=== PATIENT | female | born 1935 | race Caucasian/White ===

== ENCOUNTER 2016-05-20 14:24 | Outpatient (CLI) | payer MEDICARE, BC | END 2016-05-20 14:25 | disposition home or self-care (01) | DX: R92.8 Other abnormal and inconclusive findings on diagnostic imaging of breast (principal); C50.911 Malignant neoplasm of unspecified site of right female breast ==

== ENCOUNTER 2016-10-19 17:27 | Outpatient (CLI) | payer MEDICARE, BC ==
--- NOTE | 2016-10-20 10:25 | XRAY Report ---
EXAM: BILATERAL WRIST RADIOGRAPHY EXAM DATE: 10/19/2016 06:00 PM. CLINICAL HISTORY: Chronic bilateral wrist pain. COMPARISON: 07/31/2015. TECHNIQUE: 3 views. FINDINGS: Bones: Mild bilateral osteopenia, stable. Joints: Moderate right-sided and severe left-sided degenerative joint disease of the first carpometac arpal joints. On the left, there are osteophytes and some adjacent pericapsular calcifications versus heterotopic bone formation. This is stable since the prior left wrist exam. Mild bilateral scaphotrapezial degenerative joint disease. Carpal joints otherwise well-preserved. Soft Tissues: Normal. No soft tissue swelling. IMPRESSION: 1. 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 The left side i s stable since prior. JENNY Referring Provider Line: [phone] SITE ID: [id number]
== END 2016-10-19 17:28 | disposition home or self-care (01) ==
LOC: DI 17:27
PROVIDERS: ATTEND Orthopaedic Surgery
DX: M18.0 Bilateral primary osteoarthritis of first carpometacarpal joints (principal)

== ENCOUNTER 2016-10-31 12:47 | Outpatient (CLI) | payer MEDICARE, BC | END 2016-10-31 12:48 | disposition home or self-care (01) | LOC: DI 12:47 | PROVIDERS: ATTEND Family Medicine | DX: I50.9 Heart failure, unspecified (principal); I48.91 Unspecified atrial fibrillation; Z86.79 Personal history of other diseases of the circulatory system | CPT/HCPCS: 93306 ==

== ENCOUNTER 2016-12-15 15:52 | Outpatient (CLI) | payer MEDICARE, BC | END 2016-12-15 23:59 | disposition home or self-care (01) | LOC: RT 15:52 | PROVIDERS: ATTEND Orthopaedic Surgery | DX: Z01.810 Encounter for preprocedural cardiovascular examination (principal); I10 Essential (primary) hypertension; G56.02 Carpal tunnel syndrome, left upper limb | CPT/HCPCS: 93005 ==

== ENCOUNTER 2016-12-27 06:13 | Day surgery (SDC) | payer MEDICARE, BC ==
[2016-12-27] MEDS ORDERED: LACTATED RINGERS 1,000 ML IV ONE (06:59)
[2016-12-27] MEDS ORDERED: LIDOCAINE 1% 50 ML MDV SUBQ ONE (07:44)
[2016-12-27] MEDS ORDERED: PROPOFOL 200 MG/20 ML VIAL IVP ONE (07:45)
[2016-12-27] MEDS ORDERED: LIDOCAINE-MPF 2% 5 ML VIAL IM ONE (07:45)
[2016-12-27] MEDS ORDERED: BUPIVACAINE 0.25%-EPI 1:200000 PF 30 ML VIAL SUBQ ONE (07:45)
[2016-12-27] MEDS ORDERED: MIDAZOLAM 2 MG/2 ML VIAL IVP ONE (07:45)
[2016-12-27] MEDS ORDERED: fentaNYL 100 MCG/2 ML VIAL IVP ONE (07:45)
[2016-12-27 08:33] VITALS: BP 120/55
--- NOTE | 2016-12-27 09:08 | OPERATIVE REPORT ---
DATE OF SURGERY: 12/27/2016 00:00:00 PREOPERATIVE DIAGNOSIS: Left hand carpal tunnel syndrome and middle finger triggering. POSTOPERATIVE DIAGNOSIS: Left hand carpal tunnel syndrome and middle finger triggering. NAME OF PROCEDURE: Left hand carpal tunnel release and release of middle finger trigger finger. SURGEON: Mino Bernal MD ANESTHESIA: Local MAC. INDICATIONS FOR SURGERY: This is an 81-year-old female with chronic carpal tunnel syndrome who also h as concurrent triggering of her middle finger. She has failed nonoperative care and bracing. She ely res surgical carpal tunnel release and release of her trigger finger. DESCRIPTION OF OPERATIVE PROCEDURE: The patient was taken to the operating room, was given a MAC anes thetic and local infiltration after an adequate timeout. The hand was sterilely prepped and draped in standard fashion. The incision was first placed in the palm in line with the third webspace and take n down through skin and subcutaneous tissue down to the transverse carpal ligament, which was divided in line with the incision. The release ended at the superficial arch distally, and on the proximal e nd was extended to the distal wrist flexion crease. There was no other abnormality in the tunnel and the nerve did appear constricted. Attention was then directed to the middle finger where a small curv ed incision was made at the level of the A1 darryn and dissection directly made to the flexor sheath exposing the darryn and dividing it longitudinally. The patient was able to move her finger without t riggering at that point. The area was irrigated, both wounds, and closed with interrupted 4-0 nylon s uture. Sterile dressings were applied. The patient was taken to recovery room in stable condition. ESTIMATED BLOOD LOSS: Minimal. COMPLICATIONS: None. SPONGE AND NEEDLE COUNTS: Correct. JOB #: [id number] EXT JOB #:[id number]
== END 2016-12-27 06:14 | disposition home or self-care (01) ==
LOC: SDS 06:13
PROVIDERS: ATTEND Orthopaedic Surgery
PROC: 01N50ZZ Release Median Nerve, Open Approach (ICD-10-PCS; principal; 2016-12-27 07:30)
PROC: 0LN80ZZ Release Left Hand Tendon, Open Approach (ICD-10-PCS; 2016-12-27 07:30)
DX: G56.02 Carpal tunnel syndrome, left upper limb (principal); M65.332 Trigger finger, left middle finger; F17.200 Nicotine dependence, unspecified, uncomplicated; J43.9 Emphysema, unspecified; I11.0 Hypertensive heart disease with heart failure; I50.9 Heart failure, unspecified; K22.70 Barrett's esophagus without dysplasia; F32.9 Major depressive disorder, single episode, unspecified; Z86.73 Personal history of transient ischemic attack (TIA), and cerebral infarction without residual deficits
CPT/HCPCS: 26055; 64721; 93005; J7120

== ENCOUNTER 2017-01-12 12:00 | Outpatient (CLI) | payer MEDICARE, BC ==
[2017-01-12 19:03] LABS: BASOPHILS # (AUTO) 0.1 10^3/uL (0.0-0.1); BASOPHILS % (AUTO) 1.2 %; EOSINOPHILS # (AUTO) 0.4 10^3/uL (0.0-0.7); EOSINOPHILS % (AUTO) 4.6 %; HCT - HEMATOCRIT 41.4 % (37.0-47.0); HGB - HEMOGLOBIN 13.6 g/dL (12.0-16.0); LYMPHOCYTES # (AUTO) 1.1 10^3/uL (1.5-3.5); MEAN CORPUSCULAR HEMOGLOBIN 30.9 pg (27.0-31.0); MEAN CORPUSCULAR HGB CONC 32.8 g/dL (32.0-36.0); MEAN CORPUSCULAR VOLUME 94.2 fL (81.0-99.0); MEAN PLATELET VOLUME 9.2 fL (7.9-10.8); MONOCYTES # (AUTO) 1.1 10^3/uL (0.0-1.0); MONOCYTES % (AUTO) 12.9 %; NEUTROPHILS # (AUTO) 5.8 10^3/uL (1.5-6.6); NEUTROPHILS % (AUTO) 68.3 %; UNCORRECTED WHITE BLOOD COUNT 8.5 x10^3/uL; WHITE BLOOD COUNT 8.5 x10^3/uL (4.8-10.8)
[2017-01-12 19:27] LABS: ALBUMIN/GLOBULIN RATIO 1.2 (1.0-2.2); BILIRUBIN,TOTAL 0.7 mg/dL (0.2-1.0); BUN - BLOOD UREA NITROGEN 16 mg/dL (6-20); CALCIUM 9.6 mg/dL (8.5-10.3); CARBON DIOXIDE - CO2 26 mmol/L (21-32); CHLORIDE 103 mmol/L (101-111); CHOL/HDL RATIO 5.3 (<4.4); CHOLESTEROL 210 mg/dL; CREATININE 1.1 mg/dL (0.4-1.0); GFR - MDRD 48 (>89); GLUCOSE 109 mg/dL (70-100); HDL CHOLESTEROL 40 mg/dL; LDL/HDL RATIO 3.2 (<4.4); POTASSIUM 4.1 mmol/L (3.5-5.0); SODIUM 138 mmol/L (135-145); TOTAL PROTEIN 7.2 g/dL (6.7-8.2); TRIGLYCERIDES 215 mg/dL; VLDL CHOLESTEROL 43 mg/dL
== END 2017-01-12 12:01 | disposition home or self-care (01) ==
LOC: LAB.WCP 12:00
PROVIDERS: ATTEND Family Medicine
DX: I48.91 Unspecified atrial fibrillation (principal); E78.5 Hyperlipidemia, unspecified
CPT/HCPCS: 36415; 80053; 80061; 84443; 85025

== ENCOUNTER 2017-01-23 12:25 | Outpatient (CLI) | payer MEDICARE, BC ==
--- NOTE | 2017-01-23 13:57 | Mammography Report ---
DIGITAL DIAGNOSTIC BILATERAL MAMMOGRAM: 01/23/2017 CLINICAL INDICATION: An 81-year-old with personal history of right breast cancer status post lumpect dante and radiation therapy. COMPARISON: 05/20/2016, 10/16/2015, 02/10/2015, 01/05/2015, 12/16/2014, 04/05/2013, 03/17/2010 TECHNIQUE: Bilateral CC and MLO views, right true lateral and spot magnification views. FINDINGS: The breasts again demonstrate scattered fibroglandular densities bilaterally. Coarse and punctate, typically benign calcifications are present. Postoperative and post-treatment changes in t he right upper, inner central breast are stable. No suspicious masses, clustered microcalcifications , or regions of architectural distortion are identified. IMPRESSION: BENIGN FINDINGS. RECOMMENDATION: Routine annual mammography unless otherwise clinically indicated. BIRADS CATEGORY 2 - BENIGN FINDINGS. STANDARD QUALIFYING STATEMENTS 1. This examination was reviewed with the aid of Computer-Aided Detection (CAD). 2. A negative or benign imaging report should not delay biopsy if clinically suspicious findings are present. Consider surgical consultation if warranted. More than 5% of cancers are not identified by i maging. 3. Dense breasts may obscure an underlying neoplasm. JOB #: [id number] EXT JOB #:[id number]
== END 2017-01-23 12:26 | disposition home or self-care (01) ==
LOC: DI 12:25
PROVIDERS: ATTEND Family Medicine
DX: Z08 Encounter for follow-up examination after completed treatment for malignant neoplasm (principal); Z85.3 Personal history of malignant neoplasm of breast
CPT/HCPCS: 77066

== ENCOUNTER 2017-04-11 12:12 | Emergency (ER) | payer MEDICARE, BC ==
--- NOTE | 2017-04-11 12:39 | ED Physician Documentation ---
History of Present Illness - Stated complaint Stated Complaint: CHEST PX - Chief complaint Chief Complaint: General - History obtained from History obtained from: Patient - History of Present Illness Timing: Other (81-year-old woman with history of Atrial fibrillation, persistent , fully anticoagulated with Eliquis, but no history of coronary disease presents with 2 days of constant left upper chest pain that is actually mostly in the upper arm and is much worse with any motion of the left arm. She is relatively pain-free without moving the left arm. There is no associated shortness of breath, nausea. She is in the middle of a move, but does not feel like she works too hard with the arm.) Review of Systems Constitutional: reports: Reviewed and negative Throat: reports: Reviewed and negative Cardiac: reports: Chest pain / pressure. denies: Palpitations, Pedal edema, Calf pain Respiratory: denies: Dyspnea, Cough GI: denies: Abdominal Pain, Nausea, Diarrhea PD PAST MEDICAL HISTORY - Past Medical History Cardiovascular: Congestive heart failure, Atrial fibrillation, Arrhythmia Respiratory: COPD, Pneumonia, Other Neuro: TIA Endocrine/Autoimmune: None GI: GERD, Chronic constipation, Hemorrhoids SH[employer] R[employer] ARTILLERY: Breast cancer : Retention, Incontinence, Frequency HEENT: None Psych: Depression Musculoskeletal: Osteoarthritis, Chronic back pain, Other Derm: None - Past Surgical History Past Surgical History: Yes General: Appendectomy, Colonoscopy Ortho: Knee replacement, Arthroscopic surgery, Spine surgery /[employer] ARTILLERY: Hysterectomy Cardiovascular: Other HEENT: Tonsil/Adenoidectomy - Present Medications Home Medications: Ambulatory Orders Medication Instructions Recorded Confirmed Ipratropium [Atrovent] 0.03 mg INH Q4-6H 04/30/13 12/15/16 Lisinopril 2.5 mg PO DAILY 04/30/13 12/27/16 Metoprolol Succinate 100 mg PO BID 04/30/13 12/27/16 Fexofenadine [Vikki] 180 tab PO DAILY 11/26/13 12/27/16 Multivit with Calcium,Iron,Min 1 tab PO DAILY 11/26/13 12/27/16 [Multivitamins R-[id number]] Omeprazole [PriLOSEC] 20 mg PO BID 01/01/14 12/27/16 Digoxin 0.125 mg PO Q2D 05/27/14 12/27/16 Ferrous Gluconate 972 mg PO DAILY 05/27/14 12/27/16 Ropinirole HCl 1 mg PO DAILY 05/27/14 12/27/16 Atorvastatin [Lipitor] 20 mg PO DAILY 02/06/15 12/27/16 Calcium Carbonate [Calcium] 1,000 mg PO BID 02/06/15 12/27/16 Potassium Chloride 20 meq PO DAILY 02/06/15 12/27/16 Anastrozole 1 mg PO DAILY 05/13/15 12/27/16 Docusate Sodium [Stool Softener] 1 cap PO DAILY 08/26/15 12/27/16 Saccharomyces Boulardii [Florastor] 250 mg PO BID 08/26/15 12/27/16 Apixaban [Eliquis] 5 mg PO BID 03/06/16 12/27/16 raNITIdine [Zantac] 150 mg PO BID 03/06/16 12/27/16 DULoxetine [Cymbalta] 60 mg PO DAILY 12/15/16 12/27/16 - Allergies Allergies/Adverse Reactions: Allergies Allergy/AdvReac Type Severity Reaction Status Date / Time No Known Drug Allergies Allergy Verified 04/11/17 12:31 - Social History Does the pt smoke?: No Smoking Status: Former smoker Does the pt drink ETOH?: Yes Does the pt have substance abuse?: No - Immunizations Immunizations are current?: Yes - POLST Patient has POLST: No PD ED PE NORMAL - Vitals Vital signs reviewed: Yes - General General: Alert and oriented X 3, No acute distress - HEENT HEENT: Other (Pupils are dilated, she just came from the eye doctor.) - Neck Neck: Supple, no meningeal sign, No bony TTP - Cardiac Cardiac: Other (Irregularly irregular without murmur) - Respiratory Respiratory: No respiratory distress, Clear bilaterally - Abdomen Abdomen: Soft, Non tender - Extremities Extremities: Other (She has muscular tenderness in the upper bicep and upper scapula and has pain with reaching across to the right with the left arm. She is equal radial pulses and full range of motion of both arms.) - Neuro Neuro: Alert and oriented X 3 Eye Opening: Spontaneous Motor: Obeys Commands Verbal: Oriented GCS Score: 15 - Psych Psych: Normal mood, Normal affect Results - Vitals Vitals: Vital Signs - 24 hr 04/11/17 04/11/17 12:15 13:23 Temperature 36 C L 36.8 C Heart Rate 77 97 Respiratory 20 15 Rate Blood Pressure 140/72 H 135/77 H O2 Saturation 100 97 Oxygen O2 Source [] Room air O2 Source Room air - EKG (time done) 1219 Rate: Rate (enter#) (110) Rhythm: Atrial fibrillation [place]: Normal QRS: Normal Ischemia: Non specific changes Computer interpretation: Agree with computer - Labs Labs: Laboratory Tests 04/11/17 04/11/17 04/11/17 12:50 12:50 12:50 WBC 8.8 RBC 4.33 Hgb 13.3 Hct 39.5 MCV 91.3 MCH 30.7 MCHC 33.7 RDW 14.8 Plt Count 258 MPV 8.3 Neut # 6.1 Lymph # 1.1 L [place] # 1.2 H Eos # 0.4 Baso # 0.1 Absolute Nucleated RBC 0.00 Nucleated RBC % 0.0 Sodium 139 Potassium 4.2 Chloride 103 Carbon Dioxide 25 Anion Gap 11.0 BUN 20 Creatinine 1.0 Estimated GFR (MDRD) 53 L Glucose 120 H Calcium 9.4 Total Bilirubin 0.8 AST 25 ALT 19 Alkaline Phosphatase 106 Troponin I < 0.04 Total Protein 7.1 Albumin 3.6 Globulin 3.5 Albumin/Globulin Ratio 1.0 Lipase 26 - Rads (name of study) 2v chest Radiology: EMP read contemporaneously (NAD) PD MEDICAL DECISION MAKING - ED course ED course: 81-year-old woman presents with chest pain that seems very muscular on examination, reproducible tenderness in the upper arm and motion related. Given her age though a workup is necessary consisting of a chest x-ray and troponin. She declines pain medication. Departure - Departure Disposition: 01 Home, Self Care Clinical Impression: Muscular chest pain Condition: Good Record reviewed to determine appropriate education?: Yes Instructions: ED Chest Pain NonCardiac Comments: Call your doctor to arrange a follow-up appointment, make the next available appointment. In the interim, return anytime if worse or if new symptoms develop. Your blood pressure was elevated today on check into the emergency department. This does not mean that you have hypertension, it is a common phenomenon to come to the emergency department and have elevated blood pressure. I recommend that you see your primary care physician within the week to have it rechecked when you are feeling better.
[2017-04-11 12:58] LABS: BASOPHILS # (AUTO) 0.1 10^3/uL (0.0-0.1); BASOPHILS % (AUTO) 0.6 %; EOSINOPHILS # (AUTO) 0.4 10^3/uL (0.0-0.7); EOSINOPHILS % (AUTO) 4.8 %; HCT - HEMATOCRIT 39.5 % (37.0-47.0); HGB - HEMOGLOBIN 13.3 g/dL (12.0-16.0); LYMPHOCYTES # (AUTO) 1.1 10^3/uL (1.5-3.5); LYMPHOCYTES % (AUTO) 12.2 %; MEAN CORPUSCULAR HEMOGLOBIN 30.7 pg (27.0-31.0); MEAN CORPUSCULAR HGB CONC 33.7 g/dL (32.0-36.0); MEAN CORPUSCULAR VOLUME 91.3 fL (81.0-99.0); MEAN PLATELET VOLUME 8.3 fL (7.9-10.8); MONOCYTES # (AUTO) 1.2 10^3/uL (0.0-1.0); MONOCYTES % (AUTO) 13.5 %; NEUTROPHILS # (AUTO) 6.1 10^3/uL (1.5-6.6); NEUTROPHILS % (AUTO) 68.9 %; RED BLOOD COUNT 4.33 10^6/uL (4.20-5.40); RED CELL DISTRIBUTION WIDTH 14.8 % (12.0-15.0); UNCORRECTED WHITE BLOOD COUNT 8.8 x10^3/uL; WHITE BLOOD COUNT 8.8 x10^3/uL (4.8-10.8)
[2017-04-11 13:10] LABS: BILIRUBIN,TOTAL 0.8 mg/dL (0.2-1.0); CALCIUM 9.4 mg/dL (8.5-10.3); POTASSIUM 4.2 mmol/L (3.5-5.0); TOTAL PROTEIN 7.1 g/dL (6.7-8.2)
--- NOTE | 2017-04-11 13:51 | XRAY Preliminary Report ---
Exam: XR CHEST 2 VIEW PA/LAT IMPRESSION: No radiographically apparent acute abnormality in the chest. No significant change from p rior. [facility] SITE ID: [id number]
--- NOTE | 2017-04-11 13:53 | XRAY Report ---
EXAM: CHEST RADIOGRAPHY EXAM DATE: 04/11/2017 01:42 PM. CLINICAL HISTORY: Chest pain. COMPARISON: 03/06/2016. TECHNIQUE: 2 views. FINDINGS: Lungs/Pleura: No focal consolidation. Mild scarring in the mid left lung as before. No pneumothorax o r pleural effusion. Normal lung volumes. Right hemidiaphragm eventration. Mediastinum: Heart and mediastinal contours are unremarkable. Other: None. IMPRESSION: No radiographically apparent acute abnormality in the chest. No significant change from p rior. [facility] Referring Provider Line: [phone] SITE ID: [id number]
[2017-04-11 14:26] VITALS: BP 123/86
== END 2017-04-11 14:10 | disposition home or self-care (01) ==
LOC: ED 12:12
DX: R07.89 Other chest pain (principal); I48.91 Unspecified atrial fibrillation; R03.0 Elevated blood-pressure reading, without diagnosis of hypertension; Z79.01 Long term (current) use of anticoagulants; M79.622 Pain in left upper arm; I50.9 Heart failure, unspecified; Z85.3 Personal history of malignant neoplasm of breast; Z86.73 Personal history of transient ischemic attack (TIA), and cerebral infarction without residual deficits; Z96.659 Presence of unspecified artificial knee joint; Z87.891 Personal history of nicotine dependence
CPT/HCPCS: 36415; 71020; 80053; 83690; 84484; 85025; 93005; 99283; 99284